=== PATIENT | male | born 1935 | race African-American/Black ===

== ENCOUNTER 2019-03-17 09:54 | Outpatient (CLI) | payer MEDICARE, MEDICAID, SELFPAY ==
--- NOTE | 2019-03-17 15:27 | PT.OIE ---
Current Diagnoses Muscle weakness (generalized) (03/17/19) Provider Visit Care Team Role Provider Type Forrest Chambers MD Attending Provider Non-Staff Primary Care Provider Specialty: Family Practice Address: [address] [place] [address], [address], [place], [address] Email:
== END 2019-03-20 09:04 ==
LOC: PHYS 09:55
PROVIDERS: PCP Family Medicine; Visit Provider Family Medicine
DX: M62.81 Muscle weakness (generalized) (principal)
CPT/HCPCS: 97162; 97542